=== PATIENT | male | born 1975 | race Caucasian/White ===

== ENCOUNTER 2017-04-20 07:08 | Outpatient (CLI) | payer OTHER ==
[2017-04-20 10:30] LABS: EOSINOPHILS # (AUTO) 0.2 10^3/uL (0.0-0.7); HGB - HEMOGLOBIN 15.2 g/dL (14.0-18.0); NEUTROPHILS # (AUTO) 5.6 10^3/uL (1.5-6.6)
[2017-04-20 10:32] LABS: BASOPHILS % (AUTO) 0.5 %; HCT - HEMATOCRIT 46.3 % (42.0-52.0); LYMPHOCYTES # (AUTO) 2.4 10^3/uL (1.5-3.5); LYMPHOCYTES % (AUTO) 25.1 %; MEAN CORPUSCULAR HEMOGLOBIN 27.3 pg (27.0-31.0); MEAN CORPUSCULAR VOLUME 82.7 fL (80.0-94.0); MEAN PLATELET VOLUME 8.8 fL (7.4-11.4); MONOCYTES # (AUTO) 1.2 10^3/uL (0.0-1.0); MONOCYTES % (AUTO) 12.3 %; NEUTROPHILS % (AUTO) 60.1 %; RED BLOOD COUNT 5.59 10^6/uL (4.70-6.10); RED CELL DISTRIBUTION WIDTH 13.1 % (12.0-15.0); UNCORRECTED WHITE BLOOD COUNT 9.4 x10^3/uL; WHITE BLOOD COUNT 9.4 x10^3/uL (4.8-10.8)
[2017-04-20 10:47] LABS: ALBUMIN/GLOBULIN RATIO 1.7 (1.0-2.2); BILIRUBIN,TOTAL 1.1 mg/dL (0.2-1.0); BUN - BLOOD UREA NITROGEN 15 mg/dL (6-20); CALCIUM 9.1 mg/dL (8.5-10.3); CARBON DIOXIDE - CO2 26 mmol/L (21-32); CHLORIDE 102 mmol/L (101-111); CHOL/HDL RATIO 5.4 (<5.0); CHOLESTEROL 151 mg/dL; CREATININE 0.7 mg/dL (0.6-1.2); GFR - MDRD 124 (>89); GLUCOSE 124 mg/dL (70-100); HDL CHOLESTEROL 28 mg/dL; POTASSIUM 3.8 mmol/L (3.5-5.0); SODIUM 138 mmol/L (135-145); TOTAL PROTEIN 7.3 g/dL (6.7-8.2); TRIGLYCERIDES 188 mg/dL; VLDL CHOLESTEROL 38 mg/dL
== END 2017-04-20 07:09 | disposition home or self-care (01) ==
LOC: LAB.F 07:08
PROVIDERS: ATTEND Physician Assistant Medical
DX: I10 Essential (primary) hypertension (principal)
CPT/HCPCS: 36415; 80053; 80061; 85025

== ENCOUNTER 2017-11-01 07:13 | Outpatient (CLI) | payer BC ==
[2017-11-01 10:25] LABS: BILIRUBIN,URINE NEGATIVE (NEGATIVE); GLUCOSE, URINE (UA) NEGATIVE (NEGATIVE); KETONES,URINE (UA) NEGATIVE (NEGATIVE); LEUKOCYTE ESTERASE, URINE NEGATIVE (NEGATIVE); NITRITE,URINE NEGATIVE (NEGATIVE); OCCULT BLOOD,URINE TRACE-INTA (NEGATIVE); PROTEIN,URINE NEGATIVE (NEGATIVE); UROBILINOGEN,URINE 0.2 (NORMAL) E.U./dL (NORMAL)
[2017-11-01 10:36] LABS: HB2 TOTAL 15.9 g/dL; HEMOGLOBIN A1C 0.76 g/dL; HEMOGLOBIN A1C % 6.5 % (4.6-6.2)
[2017-11-01 10:40] LABS: ALBUMIN 4.5 g/dL (3.2-5.5); ALBUMIN/GLOBULIN RATIO 1.6 (1.0-2.2); BILIRUBIN,TOTAL 1.3 mg/dL (0.2-1.0); CALCIUM 9.3 mg/dL (8.5-10.3); CREATININE 0.8 mg/dL (0.6-1.2); TOTAL PROTEIN 7.3 g/dL (6.7-8.2)
[2017-11-01 11:05] LABS: CLARITY,URINE CLOUDY (CLEAR)
[2017-11-01 11:20] LABS: AMORPHOUS SEDIMENT,UR Marked /LPF; BACTERIA,URINE Few /HPF (None Seen); MUCUS,URINE Marked Strands; RBC,URINE 0-5 /HPF (0-5); SQUAMOUS EPITHELIAL CELL,UR RARE Squamous (<= Few)
[2017-11-01 19:24] LABS: BILIRUBIN,DIRECT 0.1 mg/dL (0.1-0.5)
== END 2017-11-01 07:14 | disposition home or self-care (01) ==
LOC: LAB.F 07:13
PROVIDERS: ATTEND Physician Assistant Medical
DX: Z00.00 Encounter for general adult medical examination without abnormal findings (principal); R31.9 Hematuria, unspecified; R73.01 Impaired fasting glucose; E80.7 Disorder of bilirubin metabolism, unspecified
CPT/HCPCS: 36415; 80053; 81001; 82248; 83036; 87086

== ENCOUNTER 2018-10-11 07:18 | Outpatient (CLI) | payer OTHER ==
[2018-10-11 10:41] LABS: BASOPHILS # (AUTO) 0.1 10^3/uL (0.0-0.1); BASOPHILS % (AUTO) 0.7 %; EOSINOPHILS # (AUTO) 0.1 10^3/uL (0.0-0.7); EOSINOPHILS % (AUTO) 1.4 %; LYMPHOCYTES # (AUTO) 2.1 10^3/uL (1.5-3.5); LYMPHOCYTES % (AUTO) 25.1 %; MEAN CORPUSCULAR HEMOGLOBIN 27.7 pg (27.0-31.0); MEAN CORPUSCULAR HGB CONC 33.1 g/dL (32.0-36.0); MEAN CORPUSCULAR VOLUME 83.8 fL (80.0-94.0); MEAN PLATELET VOLUME 8.9 fL (7.4-11.4); MONOCYTES # (AUTO) 0.9 10^3/uL (0.0-1.0); MONOCYTES % (AUTO) 10.1 %; NEUTROPHILS # (AUTO) 5.3 10^3/uL (1.5-6.6); NEUTROPHILS % (AUTO) 62.7 %; PLT - PLATELET COUNT 253 10^3/uL (130-450); RED BLOOD COUNT 5.42 10^6/uL (4.70-6.10); RED CELL DISTRIBUTION WIDTH 12.3 % (12.0-15.0); WHITE BLOOD COUNT 8.5 x10^3/uL (4.8-10.8)
[2018-10-11 10:55] LABS: ALBUMIN 4.4 g/dL (3.2-5.5); ALBUMIN/GLOBULIN RATIO 1.6 (1.0-2.2); ALKALINE PHOSPHATASE 57 IU/L (42-121); ALT ALANINE AMINOTRANSFERASE 55 IU/L (10-60); AST ASPARTATE AMINOTRANSFERASE 30 IU/L (10-42); BUN - BLOOD UREA NITROGEN 12 mg/dL (6-20); CARBON DIOXIDE - CO2 24 mmol/L (21-32); CHLORIDE 98 mmol/L (101-111); CHOL/HDL RATIO 6.6 (<5.0); CHOLESTEROL 152 mg/dL; CREATININE 0.7 mg/dL (0.6-1.2); GFR - MDRD 123 (>89); GLUCOSE 263 mg/dL (70-100); HDL CHOLESTEROL 23 mg/dL; LDL CHOLESTEROL,CALCULATED 73 mg/dL; LDL/HDL RATIO 3.2 (<3.6); SODIUM 133 mmol/L (135-145); TOTAL PROTEIN 7.2 g/dL (6.7-8.2); VLDL CHOLESTEROL 56 mg/dL
[2018-10-11 11:07] LABS: CREATININE,URINE 194.9 mg/dL; MICROALBUM/CREATININE RATIO,UR 8.2 ug/mg (<30.0); MICROALBUMIN,URINE 1.6 mg/dL (0-300.0)
[2018-10-11 11:10] LABS: HB2 TOTAL 17.2 g/dL; HEMOGLOBIN A1C 1.58 g/dL; HEMOGLOBIN A1C % 10.6 % (4.6-6.2)
== END 2018-10-11 07:19 | disposition home or self-care (01) ==
LOC: LAB.F 07:18
PROVIDERS: ATTEND Physician Assistant Medical
DX: E11.9 Type 2 diabetes mellitus without complications (principal); I10 Essential (primary) hypertension; E78.5 Hyperlipidemia, unspecified
CPT/HCPCS: 36415; 80053; 80061; 82043; 82570; 83036; 83721; 85025

== ENCOUNTER 2018-11-05 13:17 | Outpatient (CLI) | payer OTHER | END 2018-11-05 13:18 | disposition home or self-care (01) | LOC: NS 13:17 | PROVIDERS: ATTEND Physician Assistant Medical | DX: Z71.3 Dietary counseling and surveillance (principal); E11.9 Type 2 diabetes mellitus without complications | CPT/HCPCS: 97802 ==

== ENCOUNTER 2018-11-20 12:44 | Outpatient (CLI) | payer OTHER | END 2018-11-20 12:45 | disposition home or self-care (01) | LOC: SC 12:44 | PROVIDERS: ATTEND Internal Medicine Pulmonary Disease | DX: G47.10 Hypersomnia, unspecified (principal); R06.83 Snoring; E66.9 Obesity, unspecified; Z68.39 Body mass index [BMI] 39.0-39.9, adult; R51 Headache; G47.8 Other sleep disorders | CPT/HCPCS: 99203; 99212 ==

== ENCOUNTER 2018-12-18 19:30 | Outpatient (CLI) | payer OTHER | END 2018-12-18 23:59 | disposition home or self-care (01) | LOC: SC 19:30 | PROVIDERS: ATTEND Internal Medicine Pulmonary Disease | DX: G47.33 Obstructive sleep apnea (adult) (pediatric) (principal) | CPT/HCPCS: 95806 ==

== ENCOUNTER 2018-12-24 07:15 | Outpatient (CLI) | payer OTHER ==
[2018-12-24 10:06] LABS: BILIRUBIN,URINE NEGATIVE (NEGATIVE); GLUCOSE, URINE (UA) NEGATIVE (NEGATIVE); KETONES,URINE (UA) NEGATIVE (NEGATIVE); LEUKOCYTE ESTERASE, URINE NEGATIVE (NEGATIVE); NITRITE,URINE NEGATIVE (NEGATIVE); OCCULT BLOOD,URINE NEGATIVE (NEGATIVE); PH,URINE 5.5 PH (5.0-7.5); PROTEIN,URINE NEGATIVE (NEGATIVE); UROBILINOGEN,URINE 0.2 (NORMAL) E.U./dL (NORMAL)
[2018-12-24 10:11] LABS: CLARITY,URINE CLEAR (CLEAR)
[2018-12-24 10:21] LABS: BACTERIA,URINE Rare /HPF (None Seen); RBC,URINE 0-5 /HPF (0-5); SQUAMOUS EPITHELIAL CELL,UR NONE SEEN (<= Few)
[2018-12-24 10:52] LABS: HB2 TOTAL 15.5 g/dL; HEMOGLOBIN A1C 0.86 g/dL; HEMOGLOBIN A1C % 7.2 % (4.6-6.2)
== END 2018-12-24 07:16 | disposition home or self-care (01) ==
LOC: LAB.F 07:15
PROVIDERS: ATTEND Physician Assistant Medical
DX: E11.9 Type 2 diabetes mellitus without complications (principal); R31.9 Hematuria, unspecified
CPT/HCPCS: 36415; 81001; 83036

== ENCOUNTER 2019-10-10 07:10 | Outpatient (CLI) | payer OTHER ==
[2019-10-10 11:37] LABS: BASOPHILS # (AUTO) 0.1 10^3/uL (0.0-0.1); BASOPHILS % (AUTO) 0.7 %; EOSINOPHILS # (AUTO) 0.2 10^3/uL (0.0-0.7); EOSINOPHILS % (AUTO) 2.8 %; HGB - HEMOGLOBIN 14.4 g/dL (14.0-18.0); LYMPHOCYTES # (AUTO) 1.9 10^3/uL (1.5-3.5); LYMPHOCYTES % (AUTO) 25.2 %; MEAN CORPUSCULAR HEMOGLOBIN 27.8 pg (27.0-31.0); MEAN CORPUSCULAR HGB CONC 32.4 g/dL (32.0-36.0); MEAN CORPUSCULAR VOLUME 85.9 fL (80.0-94.0); MEAN PLATELET VOLUME 10.6 fL (7.4-11.4); MONOCYTES # (AUTO) 0.9 10^3/uL (0.0-1.0); MONOCYTES % (AUTO) 11.7 %; NEUTROPHILS # (AUTO) 4.5 10^3/uL (1.5-6.6); NEUTROPHILS % (AUTO) 58.8 %; PLT - PLATELET COUNT 269 10^3/uL (130-450); RED BLOOD COUNT 5.18 10^6/uL (4.70-6.10); RED CELL DISTRIBUTION WIDTH 11.9 % (12.0-15.0); WHITE BLOOD COUNT 7.6 x10^3/uL (4.8-10.8)
[2019-10-10 11:58] LABS: ALBUMIN 4.3 g/dL (3.2-5.5); ALBUMIN/GLOBULIN RATIO 1.5 (1.0-2.2); ALKALINE PHOSPHATASE 41 IU/L (42-121); ALT ALANINE AMINOTRANSFERASE 39 IU/L (10-60); AST ASPARTATE AMINOTRANSFERASE 24 IU/L (10-42); BILIRUBIN,TOTAL 0.8 mg/dL (0.2-1.0); BUN - BLOOD UREA NITROGEN 14 mg/dL (6-20); CALCIUM 8.8 mg/dL (8.5-10.3); CARBON DIOXIDE - CO2 27 mmol/L (21-32); CHLORIDE 102 mmol/L (101-111); CHOL/HDL RATIO 7.1 (<5.0); CHOLESTEROL 191 mg/dL; CREATININE 0.7 mg/dL (0.6-1.2); GFR - MDRD 122 (>89); GLUCOSE 151 mg/dL (70-100); HDL CHOLESTEROL 27 mg/dL; SODIUM 136 mmol/L (135-145); TOTAL PROTEIN 7.1 g/dL (6.7-8.2)
[2019-10-10 12:02] LABS: HB2 TOTAL 14.7 g/dL; HEMOGLOBIN A1C 0.7 g/dL; HEMOGLOBIN A1C % 6.5 % (4.6-6.2)
[2019-10-10 13:14] LABS: LDL CHOLESTEROL,DIRECT 75 mg/dL; LDLD/HDL RATIO 2.8 (<3.6)
== END 2019-10-10 07:11 | disposition home or self-care (01) ==
LOC: LAB.S 07:10
PROVIDERS: ATTEND Physician Assistant Medical
DX: I10 Essential (primary) hypertension (principal); E80.7 Disorder of bilirubin metabolism, unspecified; E78.5 Hyperlipidemia, unspecified; E11.9 Type 2 diabetes mellitus without complications
CPT/HCPCS: 36415; 80053; 80061; 83036; 83721; 85025

== ENCOUNTER 2020-01-03 08:00 | Outpatient (CLI) | payer OTHER ==
[2020-01-03 08:31] LABS: HB2 TOTAL 15.7 g/dL; HEMOGLOBIN A1C 0.69 g/dL; HEMOGLOBIN A1C % 6.2 % (4.6-6.2)
[2020-01-03 08:34] LABS: ALBUMIN 4.4 g/dL (3.2-5.5); ALBUMIN/GLOBULIN RATIO 1.6 (1.0-2.2); ALKALINE PHOSPHATASE 49 IU/L (42-121); ALT ALANINE AMINOTRANSFERASE 29 IU/L (10-60); AST ASPARTATE AMINOTRANSFERASE 20 IU/L (10-42); BILIRUBIN,TOTAL 0.9 mg/dL (0.2-1.0); BUN - BLOOD UREA NITROGEN 11 mg/dL (6-20); CARBON DIOXIDE - CO2 25 mmol/L (21-32); CHLORIDE 100 mmol/L (101-111); CHOL/HDL RATIO 5.7 (<5.0); CHOLESTEROL 159 mg/dL; CREATININE 0.7 mg/dL (0.6-1.2); GLUCOSE 152 mg/dL (70-100); HDL CHOLESTEROL 28 mg/dL; LDL CHOLESTEROL,CALCULATED 72 mg/dL; LDL/HDL RATIO 2.6 (<3.6); SODIUM 134 mmol/L (135-145); TOTAL PROTEIN 7.2 g/dL (6.7-8.2); VLDL CHOLESTEROL 59 mg/dL
[2020-01-03 08:45] LABS: CREATININE,URINE 152.4 mg/dL; MICROALBUM/CREATININE RATIO,UR 3.9 ug/mg (<30.0); MICROALBUMIN,URINE 0.6 mg/dL (0-300.0)
== END 2020-01-03 08:01 | disposition home or self-care (01) ==
LOC: LAB 08:00
PROVIDERS: ATTEND Physician Assistant Medical
DX: E78.5 Hyperlipidemia, unspecified (principal); E11.9 Type 2 diabetes mellitus without complications
CPT/HCPCS: 36415; 80053; 80061; 82043; 82570; 83036; 83721

== ENCOUNTER 2020-09-10 16:46 | Outpatient (CLI) | payer OTHER | END 2020-09-10 16:47 | disposition home or self-care (01) | LOC: COV 16:46 | PROVIDERS: ATTEND Family Medicine | DX: R05 Cough (principal); R43.8 Other disturbances of smell and taste; R09.81 Nasal congestion; J34.89 Other specified disorders of nose and nasal sinuses; Z20.822 Contact with and (suspected) exposure to COVID-19 ==

== ENCOUNTER 2020-09-30 07:16 | Outpatient (CLI) | payer OTHER ==
[2020-09-30 16:21] LABS: BASOPHILS # (AUTO) 0.1 10^3/uL (0.0-0.1); BASOPHILS % (AUTO) 0.8 %; EOSINOPHILS # (AUTO) 0.3 10^3/uL (0.0-0.7); EOSINOPHILS % (AUTO) 3.5 %; HGB - HEMOGLOBIN 13.3 g/dL (14.0-18.0); LYMPHOCYTES # (AUTO) 2.2 10^3/uL (1.5-3.5); LYMPHOCYTES % (AUTO) 30.7 %; MEAN CORPUSCULAR HEMOGLOBIN 27.7 pg (27.0-31.0); MEAN CORPUSCULAR HGB CONC 31.7 g/dL (32.0-36.0); MEAN CORPUSCULAR VOLUME 87.5 fL (80.0-94.0); MEAN PLATELET VOLUME 10.8 fL (7.4-11.4); MONOCYTES # (AUTO) 1.2 10^3/uL (0.0-1.0); MONOCYTES % (AUTO) 16.8 %; NEUTROPHILS # (AUTO) 3.4 10^3/uL (1.5-6.6); NEUTROPHILS % (AUTO) 47.1 %; PLT - PLATELET COUNT 278 10^3/uL (130-450); RED CELL DISTRIBUTION WIDTH 11.8 % (12.0-15.0); WHITE BLOOD COUNT 7.2 x10^3/uL (4.8-10.8)
[2020-09-30 17:01] LABS: BUN - BLOOD UREA NITROGEN 11 mg/dL (6-20); CALCIUM 9.1 mg/dL (8.5-10.3); CARBON DIOXIDE - CO2 27 mmol/L (21-32); CHLORIDE 98 mmol/L (101-111); CHOLESTEROL 116 mg/dL; CREATININE 0.7 mg/dL (0.6-1.2); GLUCOSE 163 mg/dL (70-100); HDL CHOLESTEROL 23 mg/dL; LDL CHOLESTEROL,CALCULATED 46 mg/dL; VLDL CHOLESTEROL 47 mg/dL
== END 2020-09-30 07:17 | disposition home or self-care (01) ==
LOC: LAB.S 07:16
PROVIDERS: ATTEND Physician Assistant
DX: R06.02 Shortness of breath (principal); E80.7 Disorder of bilirubin metabolism, unspecified; E11.9 Type 2 diabetes mellitus without complications; E78.5 Hyperlipidemia, unspecified; E66.01 Morbid (severe) obesity due to excess calories; I10 Essential (primary) hypertension
CPT/HCPCS: 36415; 80048; 80061; 82043; 82570; 83721; 84443; 85025

== ENCOUNTER 2021-09-07 12:16 | Emergency (ER) | payer OTHER ==
[2021-09-07] MEDS ORDERED: SODIUM CHLORIDE 0.9% 1,000 ML IV STA ×3 (13:21→16:17)
[2021-09-07] MEDS ORDERED: DEXAMETHASONE 10 MG/ML VIAL IVP STA (13:21)
--- NOTE | 2021-09-07 13:54 | ED Physician Documentation ---
PD HPI URI - Stated complaint Stated Complaint: C+ COUGH/FEVER/WEAK - Chief complaint Chief Complaint: Resp - History obtained from History obtained from: Patient - History of Present Illness Timing - onset: How many days ago (8) Timing duration: Days (8) Timing details: Gradual onset, Still present Associated symptoms: Fever, Chills, Sweats, Nasal congestion, Rhinorrhea, Dry cough, Dyspnea Contributing factors: Sick contact Improves by: Rest, MDI/nebulizer Worsened by: Activity Similar symptoms before: Diagnosis (pneumonia) Recently seen: Clinic - Additional information Additional information: 46-year-old male with a history of diabetes hypertension and elevated BMI has COVID he was tested +8 days ago and he has developed symptoms of increased shortness of breath. He is feeling weak and feels like he might have pneumonia. He has had pneumonia previously. He has been using his inhaler with success. He initially had fevers or fevers his fevers have now defervesced. Review of Systems Constitutional: reports: Fever, Chills, Myalgias, Fatigue, Sweats Eyes: denies: Decreased vision Ears: denies: Ear pain Nose: reports: Congestion Throat: denies: Sore throat Cardiac: denies: Chest pain / pressure, Palpitations Respiratory: reports: Dyspnea, Cough, Wheezing GI: denies: Abdominal Pain, Nausea, Vomiting : denies: Dysuria, Frequency PD PAST MEDICAL HISTORY - Past Medical History Past Medical History: Yes Cardiovascular: Hypertension, High cholesterol - Past Surgical History Past Surgical History: No - Present Medications Home Medications: Ambulatory Orders Medication Instructions Recorded Confirmed Aspirin 81 mg PO DAILY 06/24/16 06/24/16 Erythromycin Base [Erythromycin] 1 applic OP 5XD 7 Days oint...g. 06/24/16 Tramadol HCl [Conzip] 100 mg PO BID 06/24/16 06/24/16 dexAMETHasone [Decadron] 4 mg PO DAILY #5 tablet 09/07/21 metFORMIN [Glucophage] 500 mg PO BIDWM #40 tablet 09/07/21 - Allergies Allergies/Adverse Reactions: Allergies Allergy/AdvReac Type Severity Reaction Status Date / Time No Known Drug Allergies Allergy Verified 09/07/21 13:21 - Social History Does the pt smoke?: Yes Smoking Status: Current every day smoker Does the pt drink ETOH?: Yes Does the pt have substance abuse?: No - Immunizations Immunizations are current?: Yes - POLST Patient has POLST: No PD ED PE NORMAL - Vitals Vital signs reviewed: Yes (tachy and hypertensive) - General General: Alert and oriented X 3, No acute distress, Well developed/nourished - HEENT HEENT: Atraumatic, PERRL, EOMI, Ears normal, Pharynx benign, Other (dry mucous membranes) - Neck Neck: Supple, no meningeal sign, No bony TTP - Cardiac Cardiac: No murmur, Other (tachy to 120) - Respiratory Respiratory: No respiratory distress, Clear bilaterally - Abdomen Abdomen: Soft, Non tender - Back Back: No CVA TTP, No spinal TTP - Derm Derm: Normal color, Warm and dry, No rash - Extremities Extremities: No deformity, No edema - Neuro Neuro: Alert and oriented X 3, 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 specialist 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, No motor deficit, No sensory deficit, Normal speech Eye Opening: Spontaneous Motor: Obeys Commands Verbal: Oriented GCS Score: 15 - Psych Psych: Normal mood, Normal affect Results - Vitals Vitals: Vital Signs - 24 hr 09/07/21 09/07/21 13:10 14:20 Temperature 37.5 C Heart Rate 126 H 119 H Respiratory 18 24 Rate Blood Pressure 153/108 H 173/90 H O2 Saturation 95 98 Oxygen O2 Source Room air - Labs Labs: Laboratory Tests 09/07/21 09/07/21 13:45 13:45 WBC 6.2 RBC 5.18 Hgb 14.0 Hct 42.3 MCV 81.7 MCH 27.0 MCHC 33.1 RDW 11.6 L Plt Count 229 MPV 9.9 Neut # (Auto) 3.3 Lymph # (Auto) 1.4 L [place] # (Auto) 1.3 H Eos # (Auto) 0.0 Baso # (Auto) 0.0 Absolute Nucleated RBC 0.00 Nucleated RBC % 0.0 Sodium 130 L Potassium 3.7 Chloride 93 L Carbon Dioxide 25 Anion Gap 12.0 BUN 11 Creatinine 0.6 Estimated GFR (MDRD) 144 Glucose 303 H Calcium 8.6 Total Bilirubin 0.6 AST 27 ALT 42 Alkaline Phosphatase 55 Total Protein 7.0 Albumin 4.2 Globulin 2.8 Albumin/Globulin Ratio 1.5 Lipase 22 - Rads (name of study) chest Radiology: Prelim report reviewed (Impression: No acute cardiopulmonary abnorma lity identified.), EMP read indepedently, See rad report PD MEDICAL DECISION MAKING - ED course Complexity details: reviewed results, re-evaluated patient, considered differential, d/w patient ED course: 46-year-old male with a diagnosis of COVID continues to have some difficulty with breathing he is now developed some weakness he appears significantly dehydrated has an elevated heart rate and is given intravenous saline as well as some dexamethasone. His lungs sound clear on examination and a chest x-ray does not demonstrate evidence of an infiltrate. I believe the patient is still recovering from his COVID and he does not need admission into the hospital. His blood sugar is over 300 and he is dehydrated. He is administered IV saline 2 liters and IV insulin to get his sugar under 200. He has not been taking his metformin and we will scribe this to him as well as a short course of decadron. Departure - Departure Disposition: Home, Self Care Clinical Impression: COVID, Dehydration Diabetes mellitus out of control Qualifiers: Diabetes mellitus type: type 2 Glycemic state: with hyperglycemia Qualified Co de(s): E11.65 - Type 2 diabetes mellitus with hyperglycemia Condition: Stable Instructions: ED Dehydration, COVID-19 [facility], Flu and Cold: Nutrition, Prevention and Treatment Tips, ED Hyperglycemia Diabetic Follow-Up: Fausto Quintero MD [Physician No Access] - Prescriptions: dexAMETHasone [Decadron] 4 mg PO DAILY #5 tablet metFORMIN [Glucophage] 500 mg PO BIDWM #40 tablet Comments: Harish, today we did not find any evidence of pneumonia on your chest x-ray. You are still recovering from COVID and your diabetes has been out of control. You're significantly dehydrated and we have provided hydration and we have r educed your sugar. Try to keep your sugars under 210. Restart your metformin today. I have prescribed some dexamethasone for treatment of the inflammatory response to COVID. Take this medication if you need it. We have given you a 10 mg dose in the emergency department today and this will last approximately 2 days. It will raise your blood glucose levels. These medications have been e-scribed to [facility] in [place].
[2021-09-07 14:00] LABS: BASOPHILS % (AUTO) 0.5 %; EOSINOPHILS % (AUTO) 0.5 %; HCT - HEMATOCRIT 42.3 % (42.0-52.0); LYMPHOCYTES # (AUTO) 1.4 10^3/uL (1.5-3.5); LYMPHOCYTES % (AUTO) 23.4 %; MEAN CORPUSCULAR HGB CONC 33.1 g/dL (32.0-36.0); MEAN CORPUSCULAR VOLUME 81.7 fL (80.0-94.0); MEAN PLATELET VOLUME 9.9 fL (7.4-11.4); MONOCYTES # (AUTO) 1.3 10^3/uL (0.0-1.0); MONOCYTES % (AUTO) 21.3 %; NEUTROPHILS # (AUTO) 3.3 10^3/uL (1.5-6.6); NEUTROPHILS % (AUTO) 53.3 %; PLT - PLATELET COUNT 229 10^3/uL (130-450); RED BLOOD COUNT 5.18 10^6/uL (4.70-6.10); RED CELL DISTRIBUTION WIDTH 11.6 % (12.0-15.0); WHITE BLOOD COUNT 6.2 x10^3/uL (4.8-10.8)
[2021-09-07 14:03] LABS: ALBUMIN 4.2 g/dL (3.2-5.5); ALBUMIN/GLOBULIN RATIO 1.5 (1.0-2.2); BILIRUBIN,TOTAL 0.6 mg/dL (0.2-1.0); CALCIUM 8.6 mg/dL (8.5-10.3); CREATININE 0.6 mg/dL (0.6-1.2); POTASSIUM 3.7 mmol/L (3.5-5.0)
--- NOTE | 2021-09-07 14:11 | XRAY Report ---
PROCEDURE: Chest 1 View X-Ray INDICATIONS: chest pain TECHNIQUE: One view of the chest was acquired. COMPARISON: None. FINDINGS: Surgical changes and devices: None. Lungs and pleura: No pleural effusions or pneumothorax. Lungs are clear. Mediastinum: Mediastinal contours appear normal. Heart size is normal. Bones and chest wall: No suspicious bony lesions. Overlying soft tissues appear unremarkable. IMPRESSION: No acute cardiopulmonary abnormality identified. Reviewed by: Atif Field MD on 09/07/2021 2:09 PM [facility] Approved by: Atif Field MD on 09/07/2021 2:09 PM [facility] Station ID: [id number]
[2021-09-07] MEDS ORDERED: INSULIN REGULAR HUMAN 100 UNIT/1 ML 10 ML MDV IVP STA ×2 (14:28→16:17)
[2021-09-07 17:02] VITALS: BP 165/88
== END 2021-09-07 17:02 | disposition home or self-care (01) ==
LOC: ED 12:16
DX: U07.1 COVID-19 (principal); E11.65 Type 2 diabetes mellitus with hyperglycemia; Z79.84 Long term (current) use of oral hypoglycemic drugs; E86.0 Dehydration
CPT/HCPCS: 36415; 71045; 80053; 83690; 85025; 96361; 96374; 99283; 99284; J1815

== ENCOUNTER 2022-05-16 07:02 | Outpatient (CLI) | payer OTHER ==
[2022-05-16 14:37] LABS: BASOPHILS # (AUTO) 0.1 10^3/uL (0.0-0.1); BASOPHILS % (AUTO) 0.6 %; EOSINOPHILS # (AUTO) 0.2 10^3/uL (0.0-0.7); EOSINOPHILS % (AUTO) 2.6 %; HCT - HEMATOCRIT 44.2 % (42.0-52.0); HGB - HEMOGLOBIN 14.3 g/dL (14.0-18.0); LYMPHOCYTES # (AUTO) 2.5 10^3/uL (1.5-3.5); MEAN CORPUSCULAR HEMOGLOBIN 27.3 pg (27.0-31.0); MEAN CORPUSCULAR HGB CONC 32.4 g/dL (32.0-36.0); MEAN CORPUSCULAR VOLUME 84.5 fL (80.0-94.0); MEAN PLATELET VOLUME 10.4 fL (7.4-11.4); MONOCYTES # (AUTO) 1.2 10^3/uL (0.0-1.0); MONOCYTES % (AUTO) 13.1 %; NEUTROPHILS % (AUTO) 55.5 %; PLT - PLATELET COUNT 312 10^3/uL (130-450); RED BLOOD COUNT 5.23 10^6/uL (4.70-6.10); RED CELL DISTRIBUTION WIDTH 12.1 % (12.0-15.0)
[2022-05-16 15:10] LABS: CREATININE,URINE 168.2 mg/dL; MICROALBUM/CREATININE RATIO,UR 4.2 ug/mg (<30.0); MICROALBUMIN,URINE 0.7 mg/dL (0-300.0)
[2022-05-16 15:12] LABS: ALBUMIN 4.5 g/dL (3.2-5.5); ALBUMIN/GLOBULIN RATIO 1.6 (1.0-2.2); ALKALINE PHOSPHATASE 46 IU/L (42-121); ALT ALANINE AMINOTRANSFERASE 25 IU/L (10-60); AST ASPARTATE AMINOTRANSFERASE 20 IU/L (10-42); BUN - BLOOD UREA NITROGEN 14 mg/dL (6-20); CALCIUM 9.6 mg/dL (8.5-10.3); CARBON DIOXIDE - CO2 28 mmol/L (21-32); CHLORIDE 101 mmol/L (101-111); CHOL/HDL RATIO 3.9 (<5.0); CHOLESTEROL 117 mg/dL; CREATININE 0.7 mg/dL (0.6-1.2); GFR - MDRD 120 (>89); GLUCOSE 134 mg/dL (70-100); HDL CHOLESTEROL 30 mg/dL; LDL CHOLESTEROL,CALCULATED 70 mg/dL; LDL/HDL RATIO 2.3 (<3.6); POTASSIUM 4.2 mmol/L (3.5-5.0); SODIUM 136 mmol/L (135-145); TOTAL PROTEIN 7.3 g/dL (6.7-8.2); TRIGLYCERIDES 83 mg/dL; VLDL CHOLESTEROL 17 mg/dL
[2022-05-16 15:14] LABS: THYROID STIMULATING HORMONE 0.57 uIU/mL (0.34-5.60)
[2022-05-16 20:00] LABS: ESTIMATED AVERAGE GLUCOSE 131 mg/dL (70-100); HEMOGLOBIN A1c% 6.2 % (4.27-6.07)
== END 2022-05-16 07:03 | disposition home or self-care (01) ==
LOC: LAB.S 07:02
PROVIDERS: ATTEND Registered Nurse
DX: E78.5 Hyperlipidemia, unspecified (principal); E11.9 Type 2 diabetes mellitus without complications; Z79.899 Other long term (current) drug therapy
CPT/HCPCS: 36415; 80053; 80061; 82043; 82570; 82607; 83036; 83721; 84443; 85025

== ENCOUNTER 2022-08-05 13:29 | Emergency (ER) | payer OTHER ==
--- NOTE | 2022-08-05 14:33 | XRAY Report ---
PROCEDURE: Chest 2 View X-Ray INDICATIONS: cough with phlem. SOA. TECHNIQUE: 2 views of the chest were acquired. COMPARISON: 08/28/2021 FINDINGS: Surgical changes and devices: None. Lungs and pleura: No pleural effusions or pneumothorax. Lungs are clear. Mediastinum: Mediastinal contours are normal. Heart size is normal. Bones and chest wall: No suspicious bony abnormalities. Soft tissues appear unremarkable. IMPRESSION: No evidence acute pulmonary process. Reviewed by: Saeed Mendez MD on 08/05/2022 2:32 PM PST Approved by: Saeed Mendez MD on 08/05/2022 2:32 PM PST Station ID: [id number]
--- NOTE | 2022-08-05 15:00 | ED Physician Documentation ---
History of Present Illness - Stated complaint Stated Complaint: WET COUGH/CHEST PX - Chief complaint Chief Complaint: Resp - Additonal information Additional information: Patient 47-year-old male presenting to the emergency department with cough, congestion, fever. Symptoms ongoing x3 weeks. Reports some improvement with albuterol at home but denies any history of COPD or asthma. Did not get an influenza shot this year. Review of Systems Ten Systems: 10 systems reviewed and negative Constitutional: reports: Fever, Myalgias Nose: reports: Rhinorrhea / runny nose, Congestion Respiratory: reports: Cough PD PAST MEDICAL HISTORY - Past Medical History Cardiovascular: Hypertension, High cholesterol - Past Surgical History Past Surgical History: No - Present Medications Home Medications: Ambulatory Orders Medication Instructions Recorded Confirmed Aspirin 81 mg PO DAILY 06/24/16 06/24/16 Erythromycin Base [Erythromycin] 1 applic OP 5XD 7 Days oint...g. 06/24/16 Tramadol HCl [Conzip] 100 mg PO BID 06/24/16 06/24/16 dexAMETHasone [Decadron] 4 mg PO DAILY #5 tablet 09/07/21 metFORMIN [Glucophage] 500 mg PO BIDWM #40 tablet 09/07/21 Benzonatate [Tessalon] 200 mg PO TID PRN #30 cap 08/05/22 Ibuprofen [Motrin] 800 mg PO Q8H PRN #30 tablet 08/05/22 Ondansetron Odt [Zofran Odt] 4 mg TL Q6H PRN #10 tablet 08/05/22 Oxymetazoline HCl [12 Hour Nasal 30 ml NS Q4HR #30 ml 08/05/22 [place]] Pseudoephedrine HCl [Sudafed 240 mg PO DAILY #15 tab 08/05/22 24-Hour] - Allergies Allergies/Adverse Reactions: Allergies Allergy/AdvReac Type Severity Reaction Status Date / Time No Known Drug Allergies Allergy Verified 08/05/22 13:47 - Social History Does the pt smoke?: Yes Smoking Status: Current every day smoker Does the pt drink ETOH?: Yes Does the pt have substance abuse?: No - Immunizations Immunizations are current?: Yes - POLST Patient has POLST: No PD ED PE NORMAL - Vitals Vital signs reviewed: Yes (Within normal limits) - General General: Alert and oriented X 3, No acute distress, Well developed/nourished - HEENT HEENT: Atraumatic, PERRL, EOMI, Ears normal, Moist mucous membranes, Pharynx benign - Neck Neck: Supple, no meningeal sign, No bony TTP, No adenopathy, Thyroid normal, No JVD, No bruit - Cardiac Cardiac: RRR, No gallop, Strong equal pulses - Respiratory Respiratory: No respiratory distress, Clear bilaterally - Abdomen Abdomen: Normal bowel sounds, Non tender - Male Male : Deferred - Rectal Rectal: Deferred - Back Back: No CVA TTP - Derm Derm: Normal color - Extremities Extremities: No deformity - Neuro Neuro: Alert and oriented X 3, 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 Afebrile, Medically stable on arrival to the emergency department. Clear aeration in all lung harley without respiratory distress. Chest x-ray negative. Discussed nature of persistent or potentially concomitant viral illnesses with the patient. He was offered viral screening which He declined.Will discharge with prescriptions for symptomatic management. Encourage careful follow-up with primary care or return to the emergency department for new or worsening symptoms. Final clinical impression: Viral illness Departure - Departure Disposition: 01 Home, Self Care Clinical Impression: Viral illness Instructions: ED Viral Syndrome Prescriptions: Oxymetazoline HCl [12 Hour Nasal [place]] 30 ml NS Q4HR #30 ml Ibuprofen [Motrin] 800 mg PO Q8H PRN #30 tablet PRN Reason: PAIN &/OR FEVER Pseudoephedrine HCl [Sudafed 24-Hour] 240 mg PO DAILY #15 tab Benzonatate [Tessalon] 200 mg PO TID PRN #30 cap PRN Reason: Cough Ondansetron Odt [Zofran Odt] 4 mg TL Q6H PRN #10 tablet PRN Reason: Nausea / Vomiting Comments: Thank you for allowing us to care for you today at [facility]. Your prescriptions were sent electronically to [facility] in [place]. Please make a follow-up appoint with your primary care doctor soon as possible. Please drink plenty fluids and get plenty of rest. If it anytime you have new or worsening symptoms please not hesitate to return.
[2022-08-05 15:09] VITALS: BP 136/89
== END 2022-08-05 15:09 | disposition home or self-care (01) ==
LOC: ED 13:29
DX: B34.9 Viral infection, unspecified (principal); F17.200 Nicotine dependence, unspecified, uncomplicated
CPT/HCPCS: 99282; 99285

== ENCOUNTER 2023-06-29 15:15 | Emergency (ER) | payer OTHER ==
[2023-06-29] MEDS ORDERED: oxyCODONE 5 MG TABLET PO STA (16:44)
[2023-06-29] MEDS ORDERED: CYCLOBENZAPRINE 10 MG TABLET PO STA (16:45)
--- NOTE | 2023-06-29 16:47 | ED Physician Documentation ---
PD HPI BACK PAIN - Stated complaint Stated Complaint: BACK/RT SIDE PX - Chief complaint Chief Complaint: Back Pain - History obtained from History obtained from: Patient - History of Present Illness Timing - onset: How many days ago (4) Timing - duration: Days (4) Timing - details: Gradual onset Pain level max: 7 Pain level now: 7 Location: Lower, Right Quality: Pain, Spasm Associated symptoms: No: Fever, Weakness, Numbness, Incontinent of urine, Unable to urinate, Hematuria, Incontinent of stool Improves with: Rest Worsened by: Movement Contributing factors: No: Trauma, Anticoagulated, Cancer, IVDA - Additional information Additional information: 48-year-old male presents to the emergency department right low back pain. Complains of spasm to the right back, pain radiates down the right leg. He had similar symptoms on the left side before he had a laminectomy approximately 20 years ago. He states feels similar to prior episodes of sciatica. No loss of bowel or bladder control. No fevers. No chills. No IV drug use. Worse with movement, better with rest. He states that usually oxycodone, Flexeril and methylprednisolone helped to resolve his symptoms within a few days. Review of Systems Constitutional: denies: Fever, Chills Throat: denies: Sore throat Cardiac: denies: Chest pain / pressure, Palpitations Respiratory: denies: Dyspnea, Cough GI: denies: Abdominal Pain, Nausea, Vomiting, Diarrhea : denies: Dysuria, Frequency, Hesitancy Skin: denies: Rash Musculoskeletal: denies: Neck pain Neurologic: denies: Focal weakness, Numbness, Headache PD PAST MEDICAL HISTORY - Past Medical History Past Medical History: Yes Cardiovascular: Hypertension, High cholesterol Musculoskeletal: Chronic back pain - Past Surgical History Past Surgical History: Yes Ortho: Spine surgery - Present Medications Home Medications: Ambulatory Orders Medication Instructions Recorded Confirmed Aspirin 81 mg PO DAILY 06/24/16 06/24/16 Erythromycin Base [Erythromycin] 1 applic OP 5XD 7 Days oint...g. 06/24/16 Tramadol HCl [Conzip] 100 mg PO BID 06/24/16 06/24/16 dexAMETHasone [Decadron] 4 mg PO DAILY #5 tablet 09/07/21 metFORMIN [Glucophage] 500 mg PO BIDWM #40 tablet 09/07/21 Benzonatate [Tessalon] 200 mg PO TID PRN #30 cap 08/05/22 Ibuprofen [Motrin] 800 mg PO Q8H PRN #30 tablet 08/05/22 Ondansetron Odt [Zofran Odt] 4 mg TL Q6H PRN #10 tablet 08/05/22 Oxymetazoline HCl [12 Hour Nasal 30 ml NS Q4HR #30 ml 08/05/22 [place]] Pseudoephedrine HCl [Sudafed 240 mg PO DAILY #15 tab 08/05/22 24-Hour] Cyclobenzaprine [Flexeril] 10 mg PO TID PRN #20 tablet 06/29/23 Meloxicam [Mobic] 7.5 mg PO BID PRN #20 tablet 06/29/23 Oxycodone HCl/Acetaminophen 1 - 2 each PO Q6H PRN #14 tablet 06/29/23 [Percocet 5-325 mg Tablet] MDD 6 tabs methylPREDNISolone [Medrol] 4 mg PO DAILY #1 tab 06/29/23 - Allergies Allergies/Adverse Reactions: Allergies Allergy/AdvReac Type Severity Reaction Status Date / Time No Known Drug Allergies Allergy Verified 06/29/23 15:22 - Social History Does the pt smoke?: Yes Smoking Status: Current every day smoker Does the pt drink ETOH?: Yes Does the pt have substance abuse?: No - Immunizations Immunizations are current?: Yes - POLST Patient has POLST: No PD ED PE NORMAL - Vitals Vital signs reviewed: Yes - General General: Alert and oriented X 3, No acute distress - HEENT HEENT: Moist mucous membranes - Neck Neck: Supple, no meningeal sign - Cardiac Cardiac: RRR, Strong equal pulses - Respiratory Respiratory: No respiratory distress, Clear bilaterally - Abdomen Abdomen: Soft, Non tender, Non distended - Back Back: No spinal TTP (No midline tenderness to palpation or percussion. No step- off or deformity. 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 Normal great toe extension bilaterally. no saddle anesthesia) - Psych Psych: Normal mood, Normal affect Results - Vitals Vitals: Vital Signs - 24 hr 06/29/23 06/29/23 15:22 16:54 Temperature 36.8 C 37 C Heart Rate 94 82 Respiratory 16 20 Rate Blood Pressure 154/95 H 128/74 O2 Saturation 99 100 Oxygen O2 Source Room air PD Medical Decision Making - ED course Complexity details: considered differential (No cauda equina, no spinal epidural abscess, no fracture, no aortic dissection or evidence of aneursym rupture), d/w patient, d/w family ED course: 48-year-old male with what appears to be sciatica. This is a chronic ongoing issue for the patient. We will start him on pain medication, methylprednisolone and Flexeril for home as this is worked for him in the past. No evidence of cauda equina, epidural abscess. No indication for emergent imaging. Patient counseled regarding signs and symptoms for which I believe and urgent re- evaluation would be necessary. Patient with good understanding of and agreement to plan and is comfortable going home at this time This document was made in part using voice recognition software. While efforts are made to proofread this document, sound alike and grammatical errors may occur. Departure - Departure Disposition: Home, Self Care Clinical Impression: Sciatica Qualifiers: Laterality: right Qualified Code(s): M54.31 - Sciatica, right side Condition: Good Instructions: ED Sciatica Follow-Up: Micheline Johnson ARNP [Primary Care Provider] - Within 1 week Prescriptions: Cyclobenzaprine [Flexeril] 10 mg PO TID PRN #20 tablet PRN Reason: Spasms methylPREDNISolone [Medrol] 4 mg PO DAILY #1 tab Meloxicam [Mobic] 7.5 mg PO BID PRN #20 tablet PRN Reason: Pain Oxycodone HCl/Acetaminophen [Percocet 5-325 mg Tablet] 1 - 2 each PO Q6H PRN #14 tablet MDD 6 tabs PRN Reason: pain Comments: Your prescriptions were sent to [facility] in [place]. Please use the medications as prescribed. Please return if you worsen. You should follow-up with your doctor for further care. This does appear that you have sciatica now on the right side. I am prescribing a short course of narcotic pain medication for you. These are potentially dangerous and addictive medications that should be used carefully. These medications may constipate you. Take an mvfr-gme-felciot stool softener (docusate) twice daily with plenty of water while taking these medications. If you go 24 hours without a bowel movement, take [id number] miralax, per package instructions. Do not drink or drive while taking these medications. If you received narcotic or sedating medications while in the emergency department, do not drive for 24 hours. Store this medication in a safe, secure place and out of reach of children. It is a violation of federal law to give or sell this medication to another person or to use in a manner other than prescribed. The ED will not refill narcotic prescriptions, including prescriptions lost or stolen. To dispose of unwanted medications: 1. [facility] [address] in [place] has a medication drop box. They accept prescription medications (in pill form) Monday through Monday 9:00 a.m. to 5:00 p.m. 2. The [facility] [employer] accepts prescription medications (in pill form only) for disposal year round. Call for more information. 3. Contact the [facility] for the next [facility] sponsored prescription drug collection event. , [phone], or [phone];
[2023-06-29 16:55] VITALS: O2SAT 100
[2023-06-29 17:04] VITALS: BP 129/89
== END 2023-06-29 17:03 | disposition home or self-care (01) ==
LOC: ED 15:15
DX: M54.31 Sciatica, right side (principal); I10 Essential (primary) hypertension; F17.200 Nicotine dependence, unspecified, uncomplicated
CPT/HCPCS: 99284; A9270

== ENCOUNTER 2023-09-19 07:14 | Outpatient (CLI) | payer OTHER ==
[2023-09-19 16:09] LABS: BASOPHILS # (AUTO) 0.1 10^3/uL (0.0-0.1); BASOPHILS % (AUTO) 0.7 %; EOSINOPHILS # (AUTO) 0.2 10^3/uL (0.0-0.7); EOSINOPHILS % (AUTO) 2.8 %; HCT - HEMATOCRIT 46.3 % (42.0-52.0); HGB - HEMOGLOBIN 14.8 g/dL (14.0-18.0); LYMPHOCYTES # (AUTO) 2.4 10^3/uL (1.5-3.5); LYMPHOCYTES % (AUTO) 27.3 %; MEAN CORPUSCULAR HEMOGLOBIN 27.6 pg (27.0-31.0); MEAN CORPUSCULAR VOLUME 86.4 fL (80.0-94.0); MEAN PLATELET VOLUME 10.5 fL (7.4-11.4); MONOCYTES # (AUTO) 1.1 10^3/uL (0.0-1.0); MONOCYTES % (AUTO) 13.1 %; NEUTROPHILS # (AUTO) 4.8 10^3/uL (1.5-6.6); NEUTROPHILS % (AUTO) 55.8 %; PLT - PLATELET COUNT 279 10^3/uL (130-450); RED BLOOD COUNT 5.36 10^6/uL (4.70-6.10); RED CELL DISTRIBUTION WIDTH 11.9 % (12.0-15.0); WHITE BLOOD COUNT 8.6 x10^3/uL (4.8-10.8)
[2023-09-19 16:31] LABS: ALBUMIN 4.5 g/dL (3.2-5.5); ALBUMIN/GLOBULIN RATIO 1.8 (1.0-2.2); ALKALINE PHOSPHATASE 47 IU/L (42-121); ALT ALANINE AMINOTRANSFERASE 25 IU/L (10-60); AST ASPARTATE AMINOTRANSFERASE 15 IU/L (10-42); BILIRUBIN,TOTAL 0.9 mg/dL (0.2-1.0); BUN - BLOOD UREA NITROGEN 13 mg/dL (6-20); CALCIUM 9.4 mg/dL (8.5-10.3); CARBON DIOXIDE - CO2 29 mmol/L (21-32); CHLORIDE 102 mmol/L (101-111); CHOL/HDL RATIO 5.1 (<5.0); CHOLESTEROL 139 mg/dL; CREATININE 0.8 mg/dL (0.6-1.3); GFR - MDRD 103 (>89); GLUCOSE 185 mg/dL (74-104); HDL CHOLESTEROL 27 mg/dL; LDL CHOLESTEROL,CALCULATED 66 mg/dL; LDL/HDL RATIO 2.4 (<3.6); POTASSIUM 4.5 mmol/L (3.5-4.5); SODIUM 137 mmol/L (135-145); TRIGLYCERIDES 230 mg/dL (48-352); VLDL CHOLESTEROL 46 mg/dL
== END 2023-09-19 07:15 | disposition home or self-care (01) ==
LOC: LAB.S 07:14
PROVIDERS: ATTEND Registered Nurse
DX: I10 Essential (primary) hypertension (principal); E78.5 Hyperlipidemia, unspecified
CPT/HCPCS: 36415; 80053; 80061; 83721; 85025

== ENCOUNTER 2023-12-22 10:17 | Outpatient (CLI) | payer OTHER ==
[2023-12-22 15:42] LABS: CREATININE,URINE 131.3 mg/dL; MICROALBUM/CREATININE RATIO,UR 5.3 ug/mg (<30.0); MICROALBUMIN,URINE 0.7 mg/dL
[2023-12-22 20:12] LABS: ESTIMATED AVERAGE GLUCOSE 140 mg/dL (70-100); HEMOGLOBIN A1c% 6.5 % (4.27-6.07)
== END 2023-12-22 10:18 | disposition home or self-care (01) ==
LOC: LAB.S 10:17
PROVIDERS: ATTEND Registered Nurse
DX: E11.9 Type 2 diabetes mellitus without complications (principal)
CPT/HCPCS: 36415; 82043; 82570; 83036